=== PATIENT | female | born 1970 | race Caucasian/White ===

== ENCOUNTER 2016-05-10 16:30 | Emergency (ER) | payer BC ==
[~2016-05-10] VITALS: Ht 154.9 cm; Wt 55.0 kg
[2016-05-10 16:32] VITALS: TEMP 37.2; Ht 154.9 cm; Wt 55.0 kg
[2016-05-10] MEDS ORDERED: ACETAMINOPHEN 500 MG TAB PO STA (17:00)
--- NOTE | 2016-05-10 17:56 | DIAGNOSTIC IMAGING REPORT ---
CT SCAN OF THE BRAIN WITHOUT IV CONTRAST CLINICAL HISTORY: Fall with head injury. COMPARISON STUDY: No priors. TECHNIQUE: Unenhanced axial CT scan of the brain is performed from the vertex to the skull base. Automated dose control exposure was utilized. CT DOSE: 1160.96 mGy.cm FINDINGS: Brain parenchyma: There are numerous foci of hypodensity seen throughout the subcortical and periventricular white matter. There is no hemorrhage, mass effect, or evidence of acute territorial ischemia by CT criteria. Valentino-white matter is preserved. No extra-axial fluid collection is seen. Ventricles, sulci, cisterns: Normal in configuration. Intracranial vasculature: The visualized intracranial vasculature at the skull base is normal in appearance. Calvarium: There is no depressed calvarial fracture. Sinuses and mastoids: There is opacification of a right posterior ethmoid sinus. The remaining visualized paranasal sinuses are clear. The mastoid air cells are well pneumatized. Orbits: The bony orbits are grossly intact. IMPRESSION: 1. There is no hemorrhage, mass effect, or evidence of acute territorial ischemia by CT criteria. 2. There are numerous foci of diminished attenuation throughout the subcortical and periventricular white matter. This is of indeterminant significance, and could represent age advanced microangiopathic change or possibly plaques with a demyelinating process such as multiple sclerosis. Correlation with clinical findings and the patient's medical history will be required. If there is no known neurological history consider follow-up neurological consultation and nonemergent MRI of the brain for further assessment. Electronically signed by: Ludin Jimenez M.D. 05/10/2016 5:54 PM
[2016-05-10] MEDS ORDERED: DIPHTHERIA/TETANUS/PERTUSSIS 0.5 ML SYR/VIAL IM. ONE (18:15)
[2016-05-10] MEDS ORDERED: XYLOCAINE 1%/SOD BICARB 20 ML VIAL INFIL STA (18:20)
--- NOTE | 2016-05-10 18:25 | EMERGENCY ROOM VISIT NOTE ---
History First contact with patient: 16:43 Chief Complaint: FALL Stated Complaint: FALL, HIT HEAD History of Present Illness The patient is a 46 year old female who presents to the Emergency Room via private vehicle accompanied by with complaints of "fall, hit head". The patient states that while in a local park today she was attempting to get into a hammock when she fell onto the cement striking her head and right shoulder. This occurred around 4 PM today. When she began to fall she fell approximately 4 feet. She states that she heard a very loud noise, and then realized she had struck her head off the ground. She states she had to have a moment of closing her eyes and laying there on the ground. She didn't realize that she was bleeding from the right occipital/temporal region. She states that she laid on the ground for a very long time. She notes that initially she felt okay but then did not feel well. Her head, right ear and right shoulder are painful. She points to the region of the scalp just above the right ear as a location of the pain that she rates as a 7/10. The right external ear also hurts rated as a 4/10. The right shoulder over the deltoid is painful rated at an 8/10. She notes she does wear hearing aids but the right ear feels weird. There is associated nausea, and headache that occurred earlier. She was and what sort. And her neck is sore. She denies any anticoagulant use, aspirin use , vision changes, abdominal or back pain, loss of consciousness, vision changes , vomiting, dizziness, chest pain, shortness of breath. Patient's tetanus is believed to not be up-to-date Review of Systems A complete 10-point Review of Systems was discussed with the patient, with pertinent positives and negatives listed in the History of Present Illness. All remaining Review of Systems questions can be considered negative unless otherwise specified. Past Medical/Surgical History section Social History Smoking Status: Never Smoker Marital Status: Occupation Status: employed Social History: Patient was at home with and 2 kids Current/Historical Medications No Active Prescriptions or Reported Meds Allergies Coded Allergies: No Known Allergies (Verified , 05/10/16) Physical Exam Vital Signs Date Time Temp Pulse Resp B/P Pulse Ox O2 Delivery O2 Flow Rate FiO2 05/10/16 19:53 88 16 127/82 99 05/10/16 16:32 37.2 90 16 123/71 100 Room Air Physical Exam VITAL SIGNS - Vital signs and nursing notes were reviewed. The patient is afebrile, not hypertensive, not tachycardic, and oxygenating well at 100% on room air GENERAL -46-year-old female appearing her stated age. Communicates well with provider and answers questions appropriately. SKIN - There is a 1.5 cm "t" shaped laceration noted just above the right ear in the temporal scalp region. The edges gape apart with traction. There is no active bleeding appreciated. No deep structures including vessels, musculature, or bony structures are appreciated. HEAD - Normocephalic. No Landin's Sign or Raccoon's Eyes. No depressed skull fractures palpable. EYES - PERRL with EOMI bilaterally. Without subconjunctival hemorrhage. Palpebral conjunctiva pink and moist with no injection. EARS - No deformities of external structures noted on gross examination bilaterally. No hemotympanum present. No tympanic perforation noted. NOSE - Midline and without cyanosis. No epistaxis or clear watery discharge noted. Septum midline without deviation. No septal hematoma noted. No overlying ecchymosis noted. MOUTH/OROPHARYNX - Without perioral cyanosis. Tongue midline with equal elevation of palate bilaterally. No blood noted in the oropharynx. No tonsillar hypertrophy, erythema, or exudates noted. No dental fractures noted. NECK - FROM assessed. No tenderness to palpation over the cervical spinous processes. No cervical paraspinal muscle tenderness noted. LUNGS - Chest wall symmetric without accessory muscle use, intercostals retractions, or central cyanosis. Normal vesicular breath sounds CTA B/L. No wheezes, rales, or rhonchi appreciated. CARDIAC - RRR with S1/S2. No murmur, rubs, or gallops appreciated. EXTREMITIES - No gross deformities noted of the extremities. +3/5 radial pulses palpated throughout. +5/5 strength noted in UE/LE bilaterally. There is minimal tenderness to palpation of the shoulder. Active range of motion of the shoulder elicits extreme tenderness over the deltoid. NEUROLOGIC - Cranial nerves II through XII grossly intact. Sensory intact to light touch throughout. Patellar reflexes +2/4. PSYCH - A&Ox3 and cooperates fully with examiner. Pt is very pleasant and interacts well with examiner. Medical Decision & Procedures ER Provider Diagnostic Interpretation: CT SCAN OF THE BRAIN WITHOUT IV CONTRAST CLINICAL HISTORY: Fall with head injury. COMPARISON STUDY: No priors. TECHNIQUE: Unenhanced axial CT scan of the brain is performed from the vertex to the skull base. Automated dose control exposure was utilized. CT DOSE: 1160.96 mGy.cm FINDINGS: Brain parenchyma: There are numerous foci of hypodensity seen throughout the subcortical and periventricular white matter. There is no hemorrhage, mass effect, or evidence of acute territorial ischemia by CT criteria. Valentino-white matter is preserved. No extra-axial fluid collection is seen. Ventricles, sulci, cisterns: Normal in configuration. Intracranial vasculature: The visualized intracranial vasculature at the skull base is normal in appearance. Calvarium: There is no depressed calvarial fracture. Sinuses and mastoids: There is opacification of a right posterior ethmoid sinus. The remaining visualized paranasal sinuses are clear. The mastoid air cells are well pneumatized. Orbits: The bony orbits are grossly intact. IMPRESSION: 1. There is no hemorrhage, mass effect, or evidence of acute territorial ischemia by CT criteria. 2. There are numerous foci of diminished attenuation throughout the subcortical and periventricular white matter. This is of indeterminant significance, and could represent age advanced microangiopathic change or possibly plaques with a demyelinating process such as multiple sclerosis. Correlation with clinical findings and the patient's medical history will be required. If there is no known neurological history consider follow-up neurological consultation and nonemergent MRI of the brain for further assessment. Electronically signed by: Ludin Jimenez M.D. 05/10/2016 5:54 PM RIGHT SHOULDER 3 VIEWS CLINICAL HISTORY: Fall with right shoulder injury. FINDINGS: 3 views of the right shoulder are obtained. No prior studies are available for comparison at the time of dictation. The skeletal structures are well mineralized. No fracture or dislocation is seen. The glenohumeral and acromioclavicular joints appear maintained. The overlying soft tissues are within normal limits. The visualized right lung parenchyma appears clear. IMPRESSION: No acute bony abnormality is seen in the right shoulder. Electronically signed by: Ludin Jimenez M.D. 05/10/2016 7:18 PM Medications Administered Medications (Trade) Dose Ordered Sig/Maia Route Start Time Stop Time Status Last Admin Dose Admin Acetaminophen (Tylenol Tab) 500 mg NOW STAT PO 05/10/16 17:00 1/1/17 17:03 DC 05/10/16 17:10 500 MG Diphtheria/ Pertussis/Tetanus Vacc (Adacel Inj) 0.5 ml ONCE ONCE IM. 05/10/16 18:15 05/10/16 18:16 DC 05/10/16 18:25 0.5 ML Oxycodone HCl (Roxicodone Immediate Rel 5MG Home Pack) 1 homepack UD ONCE PO 05/10/16 19:30 05/10/16 19:31 DC 05/10/16 19:44 1 HOMEPACK Medical Decision Patient was seen and evaluated as above. After obtaining a thorough history and physical examination I elected to order a CT scan of the patient's head as well as a radiograph of the right shoulder secondary to mechanism of injury. I was concerned due to the patient noting that she had a period of haziness after falling as well as the shoulder pain. Results of the CT as above. Patient was given 500 mg of Tylenol for her pain per her request. No acute findings, however there was a potential demyelinating process and this was discussed with the patient and she noted that she did not have a history of MS or other ailments that she was aware of. She was instructed to follow-up with her family doctor regarding this for potential MRI. The radial graph the shoulder did not reveal any fracture. She likely has a rotator cuff injury. She was placed in a sling for this. In regard to the scalp laceration, benefits versus risks were discussed with the patient regarding primary wound closure. This region was anesthetized with 2 mL of 1% buffered lidocaine. The region was thoroughly irrigated and cleansed. 2 heather were then applied. The patient was instructed upon management. Patient was instructed to follow-up with a neuro specialist in the region and was provided the phone number and instructed to call as soon as possible. She was also provided the number for orthopedic surgeon, and instructed to follow-up with them as soon as possible for her shoulder. She is to wear the sling as able move her arm for exercise to eliminate risk of adhesive capsulitis. She is to return with any worsening of her symptoms or any concerns. She was educated up on worrisome symptoms in which to return. She had questions answered prior to discharge and was discharged home in good condition. Patient was stable time of discharge. For her pain she was given an OxyIR home pack. She was also updated on her tetanus. In the evaluation and treatment of this patient, the following differential diagnoses were considered: Concussion, Contrecoup Injury, Brain Tumor, Depression, Encephalitis, Hypothyroidism, Meningitis, CVA, TIA, Migraine, Cluster Headache, Intracranial Abnormality, Intracranial Hemorrhage, Subdural Hematoma, Subarachnoid Hemorrhage, Hydrocephalus, right shoulder fracture, rotator cuff injury, right shoulder dislocation, among others. [place] Drug Monitoring Program Search Results: patient reviewed within database, no issues identified Impression Primary Impression: Fall Additional Impressions: Laceration of head, Shoulder pain, right, Concussion Departure Information Dispostion Home / Self-Care Condition GOOD Prescriptions No Active Prescriptions or Reported Meds Referrals No Doctor, Assigned (PCP) Dee Ramos M.D. Sherbondy, Paul S., M.D. Patient Instructions A Signature Page, [facility] [employer] Additional Instructions Discharge Instructions: You have received 2 heather on your scalp. These heather are NOT dissolvable and WILL need to be removed by a health care provider in 7-10 days. You can return to the Emergency Department or contact your Primary Care Provider to have these heather removed. CT demonstrated no new injuries to the brain however the did comment on: "There are numerous foci of diminished attenuation throughout the subcortical and periventricular white matter. This is of indeterminant significance, and could represent age advanced microangiopathic change or possibly plaques with a demyelinating process such as multiple sclerosis. Correlation with clinical findings and the patient's medical history will be required. If there is no known neurological history consider follow-up neurological consultation and nonemergent MRI of the brain for further assessment." It is recommended that you follow-up with a neurologist, the number has been listed above. Please call this number as soon as possible to schedule follow- up. You've been provided the number for orthopedic surgeon. Please call that number as soon as possible regarding your shoulder. You have been given Oxy IR (24 hour supply) to be used for pain control. This is a narcotic medication. You cannot drive or consume alcohol while on this medicine. This medicine should only be used for pain that cannot be controlled with [id number] pain medicines. Keep the shoulder brace/sling in place until evaluated by Orthopedics. Continue to perform range of motion exercises several times per day to help prevent the development of a "frozen shoulder". Return to the Emergency Department if your current symptoms worsen despite treatment course outlined above, or if you develop any of the following symptoms : intractable pain despite aforementioned treatment course or new onset of numbness or tingling of the arm. Proper wound care is essential for adequate wound healing and infection prevention. You can shower and clean the wound with soap and water. Do scour over the wound, pat dry with a towel. Do not submerse the wound until the heather have been removed. You can use an antibiotic ointment with a dressing over the wound for the next 3-4 days. After this time you may leave the wound dry and open to the air. If crust develops over the wound you can use a Q-tip to apply a 1:1 peroxide:water solution to clean the wound. Look for signs of infection of the wound including: increased pain, swelling, foul discharge, streaking, or increased temperature. If any of these are noticed you should return to the Emergency Department for further assessment and treatment. As with any laceration you may have received nerve damage to the surrounding tissues. This damage may or may not be permanent. For pain control, you can use the following etkn-[id number] medicines (if >12 yo): - Regular strength (325mg/tab) Tylenol (acetaminophen) 2 tabs every 4-6 hours as needed. Do not exceed 12 tablets in a 24 hour period. Avoid taking more than 4 grams (4000 mg) of Tylenol per day. This includes any other sources of acetaminophen you may take on a regular basis. - Regular strength (200 mg/tab) Advil (ibuprofen) 1-2 tabs every 4-6 hours as needed. Do not exceed a dose of 3200 mg per day. Return to the emergency department if your symptoms worsen despite treatment course outlined above. Please return to the emergency department with any new/concerning symptoms.
--- NOTE | 2016-05-10 19:20 | DIAGNOSTIC IMAGING REPORT ---
RIGHT SHOULDER 3 VIEWS CLINICAL HISTORY: Fall with right shoulder injury. FINDINGS: 3 views of the right shoulder are obtained. No prior studies are available for comparison at the time of dictation. The skeletal structures are well mineralized. No fracture or dislocation is seen. The glenohumeral and acromioclavicular joints appear maintained. The overlying soft tissues are within normal limits. The visualized right lung parenchyma appears clear. IMPRESSION: No acute bony abnormality is seen in the right shoulder. Electronically signed by: Ludin Jimenez M.D. 05/10/2016 7:18 PM
[2016-05-10] MEDS ORDERED: OXYCODONE IR HOME PACK PO ONE (19:30)
[2016-05-10 19:53] VITALS: BP 127/82; PULSE 88; O2SAT 99
== END 2016-05-10 19:54 | disposition home or self-care (01) ==
LOC: C.EDB 16:31 → C.EDD 19:54
DX: S06.0X0A Concussion without loss of consciousness, initial encounter (principal); M25.511 Pain in right shoulder; W17.89XA Other fall from one level to another, initial encounter; Y92.830 Public park as the place of occurrence of the external cause; Z23 Encounter for immunization

== ENCOUNTER → 2016-06-09 | Outpatient (CLI) | payer BC ==
[~2016-06-09] MED LIST: GADAVIST IV PRN
--- NOTE | 2016-06-09 08:03 | DIAGNOSTIC IMAGING REPORT ---
MRI OF THE BRAIN WITHOUT AND WITH IV CONTRAST CLINICAL HISTORY: Head trauma. Abnormal CT scan. COMPARISON STUDY: CT scan dated 05/10/2016 TECHNIQUE: MRI of the brain was performed from the vertex to the skull base utilizing various T1 and T2 weighted sequences. Following the IV administration of 5.5 mL of Gadavist contrast, additional enhanced images were obtained. FINDINGS: Sagittal T1, axial diffusion, proton density and T2 weighted axial, coronal FLAIR, and pre and post axial T1-weighted images were acquired. These were supplemented with post gadolinium coronal T1 weighted images. No intra or extra-axial mass lesions are visualized. Axial diffusion-weighted images reveal no evidence of acute or subacute infarction. There is no evidence of ventricular dilatation. Proton density T2-weighted and FLAIR images reveal there are multiple foci of abnormal increased T2 signal within the white matter. These are greater than expected for age. There is no pathologic enhancement. The findings could be secondary to small vessel disease, or a demyelinating process. There are no abnormal flow voids. There is no evidence of pathologic enhancement. IMPRESSION: 1. No evidence of acute or subacute infarction 2. No evidence of intracranial mass 3. Moderately extensive foci of abnormal increased T2 signal within the white matter. These are greater than expected for age. Diagnostic considerations include small vessel disease, or a demyelinating process. Electronically signed by: Billy Pickett M.D. 06/09/2016 8:02 AM Dictated Date/Time: 06/09/2016 7:58 AM
== END ==
LOC: C.MRIBC 06:43
PROVIDERS: ATTEND Psychiatry & Neurology Neurology
DX: R90.89 Other abnormal findings on diagnostic imaging of central nervous system (principal)

== ENCOUNTER → 2016-07-13 | Outpatient (CLI) | payer BC ==
[~2016-07-13] MED LIST changes: -GADAVIST IV PRN; +OPTIRAY 320 IV PRN
--- NOTE | 2016-07-13 12:25 | DIAGNOSTIC IMAGING REPORT ---
HEAD CTA HISTORY: Mental status change. Abnormal MRI. TECHNIQUE: Multiaxial CT images of the head were performed both before and after the intravenous administration of contrast to evaluate the major cerebral vessels. Maximum intensity projection images were also obtained. COMPARISON: MRI dated 06/09/2016 FINDINGS: There is no mass, hematoma, midline shift, or acute infarct. Visualized intracranial internal carotid arteries, distal vertebral arteries, and basilar artery are widely patent. There is no significant stenosis, occlusion, or aneurysm seen within the bilateral ACAs, MCAs, or bench repair technician. Both anterior cerebrals are present via the right cerebral circulation. This is an anatomic variation. IMPRESSION: Normal study Electronically signed by: Eamon Abdullahi M.D. 07/13/2016 12:24 PM Dictated Date/Time: 07/13/2016 12:20 PM
--- NOTE | 2016-07-13 12:47 | DIAGNOSTIC IMAGING REPORT ---
ULTRASOUND OF THE CAROTID ARTERIES CLINICAL HISTORY: I67.82 Chronic cerebral [id number] COMPARISON STUDY: None. TECHNIQUE: Real-time, grayscale, and color Doppler sonography of the carotid arteries was performed. Imaging reviewed in the transverse and longitudinal planes. NASCET criteria was utilized for stenosis calcification. FINDINGS: There is minimal atherosclerotic plaque present . The peak systolic velocity within the right internal carotid artery is 117 cm/sec. The systolic velocity ratio of right internal to common carotid artery is 1.6. The peak systolic velocity within the left internal carotid artery is 106 cm/sec. The systolic velocity ratio left internal to common carotid artery is 1.2. Antegrade flow is seen in the vertebral arteries. The external carotid arteries are patent. Blood pressure in the right arm measured 106 mm/Hg. Blood pressure in the left arm measured 103 mm/Hg. IMPRESSION: No evidence of hemodynamically significant carotid stenosis. Electronically signed by: Billy Pickett M.D. 07/13/2016 12:46 PM Dictated Date/Time: 07/13/2016 12:45 PM
--- NOTE | 2016-07-13 14:40 | ECHOCARDIOGRAM REPORT ---
*NOTICE TO RECEIVING [employer] This information is strictly Confidential and protected under [place] law. [place] law prohibits you from making any further disclosure of this information unless further disclosure is expressly permitted by the written consent of the person to whom it pertains or is authorized by law. A general authorization for the release of medical or other information is not sufficient for this purpose. Hospital accepts no responsibility if the information is made available to any other person, INCLUDING THE PATIENT. Interpretation Summary * Name: MARYA ALBRIGHT Study Date: 07/13/2016 12:45 PM BP: 105/58 mmHg * Patient Location: [facility] HR: 60 * : 1970 (M/d/yyyy) Gender: Female Height: 61 in * Age: 46 yrs Ethnicity: CA Weight: 124 lb * Ordering Physician: Jen Bueno PA * Performed By: Toma Mi RDCS * * Reason For Study: Chronic cerebral ischemia * BSA: 1.5 m2 * -- Conclusions -- * Left ventricular systolic function is normal. * No regional wall motion abnormalities noted. * Ejection Fraction = 65-70%. * Injection of contrast documented no interatrial shunt. * There is mild tricuspid regurgitation. Procedure Details * A complete two-dimensional transthoracic echocardiogram was performed (2D, M-mode, Doppler and color flow Doppler). * A saline contrast injection was performed to assess for cardiac shunting. * The injection was performed through an intravenous line in the right arm. * The attending nurse who injected the saline contrast was Rizwan Ramirez RN. * A total of 20 cc of agitated saline was given. Left Ventricle * The left ventricle is normal in size. * There is normal left ventricular wall thickness. * Ejection Fraction = 65-70%. * Left ventricular systolic function is normal. * No regional wall motion abnormalities noted. Right Ventricle * The right ventricle is normal size. * The right ventricular systolic function is normal as assessed by tricuspid annular plane systolic excursion (TAPSE) (normal >1.5 cm). Atria * The left atrial size is normal. * Right atrial size is normal. * Injection of contrast documented no interatrial shunt. Mitral Valve * The mitral valve is normal in structure and function. * There is no mitral valve stenosis. * Significant mitral regurgitation is absent. Tricuspid Valve * The tricuspid valve is normal in structure and function. * There is mild tricuspid regurgitation. Aortic Valve * The aortic valve is normal in structure and function. * No hemodynamically significant valvular aortic stenosis. * There is no significant aortic regurgitation. Pulmonic Valve * The pulmonary valve is not well seen, but the Doppler examination is normal without significant regurgitation or stenosis. Great Vessels * The aortic root is normal size. * The pulmonary artery is not well visualized, but is probably normal size. Pericardium/Pleural * There is no pericardial effusion. Great Vessels * The inferior vena cava is mildly dilated. MMode 2D Measurements and Calculations IVSd 0.58 cm LVIDd 4.1 cm LVIDs 2.5 cm LVPWd 0.71 cm IVS/LVPW 0.83 FS 39.6 % EDV(Teich) 73.4 ml ESV(Teich) 21.5 ml EF(Teich) 70.7 % EDV(cubed) 67.9 ml ESV(cubed) 14.9 ml EF(cubed) 78.0 % LV mass(C)d 72.8 grams LV mass(C)dI 47.2 grams/m\S\2 CO(Teich) 3.1 l/min CI(Teich) 2.0 l/min/m\S\2 SV(Teich) 51.9 ml SI(Teich) 33.7 ml/m\S\2 CO(cubed) 3.2 l/min CI(cubed) 2.1 l/min/m\S\2 SV(cubed) 53.0 ml SI(cubed) 34.4 ml/m\S\2 Ao root diam 2.8 cm Ao root area 6.1 cm\S\2 ACS 1.7 cm LA dimension 2.4 cm asc Aorta Diam 2.3 cm LA/Ao 0.88 LVOT diam 2.0 cm LVOT area 3.0 cm\S\2 LVAd ap4 24.3 cm\S\2 LVLd ap4 7.0 cm EDV(MOD-sp4) 70.2 ml LVAs ap4 11.0 cm\S\2 LVLs ap4 5.3 cm ESV(MOD-sp4) 19.4 ml EF(MOD-sp4) 72.4 % LVAd ap2 22.2 cm\S\2 LVLd ap2 7.2 cm EDV(MOD-sp2) 58.2 ml LVAs ap2 8.9 cm\S\2 LVLs ap2 4.8 cm ESV(MOD-sp2) 13.9 ml EF(MOD-sp2) 76.1 % CO(MOD-sp4) 3.0 l/min CI(MOD-sp4) 2.0 l/min/m\S\2 SV(MOD-sp4) 50.8 ml SI(MOD-sp4) 32.9 ml/m\S\2 CO(MOD-sp2) 2.7 l/min CI(MOD-sp2) 1.7 l/min/m\S\2 SV(MOD-sp2) 44.3 ml SI(MOD-sp2) 28.7 ml/m\S\2 Doppler Measurements and Calculations MV E max enedina 114.5 cm/sec MV A max enedina 87.8 cm/sec MV E/A 1.3 MV dec time 0.18 sec Ao V2 max 162.9 cm/sec Ao max PG 10.6 mmHg Ao max PG (full) 0.64 mmHg SIERRA(V,A) 2.9 cm\S\2 SIERRA(V,D) 2.9 cm\S\2 LV V1 max PG 10.0 mmHg LV V1 max 157.9 cm/sec PA V2 max 120.8 cm/sec PA max PG 5.8 mmHg PA acc slope 462.1 cm/sec\S\2 PA acc time 0.17 sec TR max enedina 236.2 cm/sec PA pr(Accel) 2.9 mmHg
== END | disposition home or self-care (01) ==
LOC: C.CTS 11:46
PROVIDERS: ATTEND Psychiatry & Neurology Neurology
DX: I67.82 Cerebral ischemia (principal)

== ENCOUNTER → 2017-01-19 | Outpatient (CLI) | payer BC ==
[~2017-01-19] MED LIST changes: +GADAVIST IV PRN; -OPTIRAY 320 IV PRN
--- NOTE | 2017-01-19 08:09 | DIAGNOSTIC IMAGING REPORT ---
BRAIN COMBO FOR MS HISTORY: Demyelinating disorder F/U TO ABN MRI TECHNIQUE: Multiplanar multisequence MRI of the brain was performed both before and after the intravenous administration of contrast. COMPARISON STUDY: 06/09/2016 FINDINGS: Multiple foci of increased signal within the periventricular deep white matter regions. This includes the optic radiations bilaterally. Distribution as well as number and size of foci are unchanged. No new foci. There is no abnormal postcontrast enhancement. IMPRESSION: 1. Multiple foci of increased signal throughout both cerebral hemispheres. 2. No evidence for abnormal postcontrast enhancement. 3. No change from the prior exam. No new or interval findings. 4. A demyelinating disorder is the diagnosis of exclusion The above report was generated using voice recognition software. It may contain grammatical, syntax or spelling errors. Electronically signed by: Eamon Abdullahi M.D. 01/19/2017 8:08 AM Dictated Date/Time: 01/19/2017 7:50 AM
== END | disposition home or self-care (01) ==
LOC: C.MRIBC 06:49
PROVIDERS: ATTEND Psychiatry & Neurology Neurology
DX: R90.89 Other abnormal findings on diagnostic imaging of central nervous system (principal)

== ENCOUNTER → 2017-02-26 | Outpatient (CLI) | payer BC ==
--- NOTE | 2017-02-26 13:43 | MAMMOGRAPHY REPORT ---
BILATERAL DIGITAL DIAGNOSTIC MAMMOGRAM TOMOSYNTHESIS WITH CAD: 02/26/2017 CLINICAL HISTORY: 12 month follow-up of right breast calcifications. Due for routine annual mammogra phy. The patient reports no current complaints. TECHNIQUE: Breast tomosynthesis in addition to standard 2D mammography was performed. Current study was also evaluated with a Computer Aided Detection (CAD) system. Bilateral CC and MLO 2-D and tomosy nthesis images and spot magnification right cc and ML views were obtained. COMPARISON: Comparison is made to exams dated: 02/26/2016 mammogram, 08/22/2015 mammogram, 02/15/2015 mammogram, 02/07/2015 mammogram, 02/05/2014 mammogram, and 02/03/2013 mammogram - [facility]. BREAST COMPOSITION: The tissue of both breasts is extremely dense, which lowers the sensitivity of m ammography. FINDINGS: The previously described loosely grouped punctate calcifications in the right lateral poste rior breast are less prominent compared to prior spot magnification views dating back to February 2015 , and are therefore considered benign. There are no suspicious masses, calcifications, or areas of a rchitectural distortion noted within either breast. There has been no significant interval change co mpared to prior exams. IMPRESSION: ACR BI-RADS CATEGORY 2: BENIGN The previously described right breast calcifications are less prominent compared to prior exams, and are considered benign. There is no mammographic evidence of malignancy in either breast. A 1 year sc reening mammogram is recommended. The patient has been verbally notified of the results. Approximately 10% of breast cancers are not detected with mammography. A negative mammographic report should not delay biopsy if a clinically suggestive mass is present. Hui Gonzales M.D. ah/:02/26/2017 11:51:15 Business Executive: Dannielle LOTT(Sierra)(M), [facility] letter sent: Normal 1/2 BI-RADS Code: ACR BI-RADS Category 2: Benign
== END | disposition home or self-care (01) ==
LOC: C.MAMM 11:22
PROVIDERS: ATTEND Obstetrics & Gynecology
DX: R92.1 Mammographic calcification found on diagnostic imaging of breast (principal)

== ENCOUNTER 2018-01-04 10:56 | Emergency (ER) | payer OTHER ==
[~2018-01-04] VITALS: Ht 157.5 cm; Wt 58.2 kg
[2018-01-04] MEDS ORDERED: MoRPHine SULFATE 4 MG/ML 1 ML CARP\\VIAL ONE (11:11)
[2018-01-04 11:28] VITALS: TEMP 37.4; Ht 157.5 cm; Wt 58.2 kg
--- NOTE | 2018-01-04 11:29 | EMERGENCY ROOM VISIT NOTE ---
History First contact with patient: 11:04 Chief Complaint: ABDOMINAL PAIN Stated Complaint: AB PAIN, History of Present Illness The patient is a 47 year old female who presents to the Emergency Room with complaints of diffuse abdominal pain that she describes as the worst pain that she has experienced. The pain has been getting progressively worse over the last 2 days. The pain is constant and worse with movement. She has not tried anything [id number] for symptoms. Her bowel movements have been fairly regular. She has had mild nausea without vomiting. She took her temperature last night. She had a fever of 100F. The patient saw her primary care physician, and was sent here for further evaluation. She denies any urinary symptoms. Review of Systems 10 system review performed and negative unless noted in HPI or below Past Medical/Surgical History Status post 2 Social History Smoking Status: Never Smoker Marital Status: Occupation Status: employed Current/Historical Medications Scheduled Aspirin (Aspirin Ec), 81 MG PO DAILY Scheduled PRN Oxycodone/Acetaminophen 5MG/325MG (Percocet 5MG/325MG), 1 TAB PO Q4H PRN for Pain Physical Exam Vital Signs Date Time Temp Pulse Resp B/P (MAP) Pulse Ox O2 Delivery O2 Flow Rate FiO2 01/04/18 17:15 59 16 99/58 98 Room Air 01/04/18 15:43 66 01/04/18 15:19 63 14 95/57 97 Room Air 01/04/18 13:22 67 17 91/65 99 01/04/18 12:35 66 14 94/68 99 Room Air 01/04/18 11:40 71 01/04/18 11:28 37.4 75 19 111/72 99 Room Air Physical Exam GENERAL: 47-year-old female, in moderate discomfort, in no acute distress, nondiaphoretic, well-developed well-nourished. SKIN: The skin was warm and slightly moist HEAD: Normocephalic atraumatic. EYES: Conjunctivae without injection, sclerae without icterus. Extraocular movements intact. MOUTH: Mucous membranes slightly dry NECK: Supple without nuchal rigidity. . No JVD. HEART: Regular rate and rhythm without murmurs gallops or rubs. LUNGS: Clear to auscultation bilaterally without wheezes, rales or rhonchi. No accessory muscle use. ABDOMEN: Positive bowel sounds x 4.Soft, tenderness to palpation in the right lower quadrant. Positive Rovsing sign and rebound tenderness.. MUSCULOSKELETAL: No muscle atrophy, erythema, or edema noted. Strength 5/5 throughout. NEURO: Patient was alert and oriented to person place and time. Normal sensation to touch. No focal neurological deficits. Medical Decision & Procedures ER Provider Diagnostic Interpretation: CT of the abdomen and pelvis with IV and oral contrast IMPRESSION: 1. Normal appendix. No bowel obstruction. 2. 2.3 cm left ovarian cyst with small amount of hemorrhage within the cul-de-sac and right paracolic gutter. Assuming a negative test, the findings suggest a ruptured hemorrhagic ovarian cyst. Electronically signed by: Tamir Self M.D. 01/04/2018 2:58 PM Dictated Date/Time: 01/04/2018 2:51 PM The status of this report is Signed. Draft = Not yet reviewed or approved by Radiologist. Signed = Reviewed and approved by Radiologist. <AttendingPhy></AttendingPhy> <FamilyPhy>Marty Laboy MD</FamilyPhy> < PrimaryPhy>Marty Laboy MD</PrimaryPhy> <UnitNumber>[id number]</ UnitNumber> <VisitNumber>[id number] Laboratory Results 01/04/18 11:06 Red Blood Count 3.82, Mean Corpuscular Volume 87.7, Mean Corpuscular Hemoglobin 28.8, Mean Corpuscular Hemoglobin Concent 32.8, Mean Platelet Volume 10.1, Neutrophils (%) (Auto) 75.9, Lymphocytes (%) (Auto) 14.8, Monocytes (%) (Auto) 8.8, Eosinophils (%) (Auto) 0.2, Basophils (%) (Auto) 0.1, Neutrophils # (Auto) 6.63, Lymphocytes # (Auto) 1.29, Monocytes # (Auto) 0.77, Eosinophils # (Auto) 0.02, Basophils # (Auto) 0.01 01/04/18 11:06 01/04/18 12:05 Test 01/04/18 11:06 01/04/18 11:45 01/04/18 12:05 White Blood Count 8.74 K/uL (4.8-10.8) Red Blood Count 3.82 M/uL (4.2-5.4) Hemoglobin 11.0 g/dL (12.0-16.0) Hematocrit 33.5 % (37-47) Mean Corpuscular Volume 87.7 fL (80-100) Mean Corpuscular Hemoglobin 28.8 pg (25-34) Mean Corpuscular Hemoglobin Concent 32.8 g/dl (32-36) Platelet Count 233 K/uL (130-400) Mean Platelet Volume 10.1 fL (7.4-10.4) Neutrophils (%) (Auto) 75.9 % Lymphocytes (%) (Auto) 14.8 % Monocytes (%) (Auto) 8.8 % Eosinophils (%) (Auto) 0.2 % Basophils (%) (Auto) 0.1 % Neutrophils # (Auto) 6.63 K/uL (1.4-6.5) Lymphocytes # (Auto) 1.29 K/uL (1.2-3.4) Monocytes # (Auto) 0.77 K/uL (0.11-0.59) Eosinophils # (Auto) 0.02 K/uL (0-0.5) Basophils # (Auto) 0.01 K/uL (0-0.2) RDW Standard Deviation 41.8 fL (36.4-46.3) RDW Coefficient of Variation 13.0 % (11.5-14.5) Immature Granulocyte % (Auto) 0.2 % Immature Granulocyte # (Auto) 0.02 K/uL (0.00-0.02) Anion Gap 9.0 mmol/L (3-11) Est Creatinine Clear Calc Drug Dose 77.2 ml/min Estimated GFR () 116.4 Estimated GFR (Non- 100.4 BUN/Creatinine Ratio 20.0 (10-20) Calcium Level 8.4 mg/dl (8.5-10.1) Total Bilirubin 0.7 mg/dl (0.2-1) Alanine Aminotransferase (ALT/SGPT) 19 U/L (12-78) Alkaline Phosphatase 45 U/L (45-117) Total Protein 7.3 gm/dl (6.4-8.2) Albumin 3.8 gm/dl (3.4-5.0) Globulin 3.5 gm/dl (2.5-4.0) Albumin/Globulin Ratio 1.1 (0.9-2) Lipase 122 U/L (73-393) Human Chorionic Gonadotropin, Qual NEG (NEG) Lactic Acid Level 0.5 mmol/L (0.4-2.0) Aspartate Amino Transf (AST/SGOT) 12 U/L (15-37) Medications Administered Medications (Trade) Dose Ordered Sig/Maia Route Start Time Stop Time Status Last Admin Dose Admin Morphine Sulfate (MoRPHine SULFATE INJ) 4 mg STK-MED ONCE .ROUTE 01/04/18 11:11 01/04/18 11:12 DC 01/04/18 11:14 4 MG Morphine Sulfate (MoRPHine SULFATE INJ) 4 mg Q1H PRN IV 01/04/18 11:30 01/18/18 11:29 01/04/18 12:34 4 MG Sodium Chloride 1,000 ml @ 999 mls/hr Q1H1M ONCE IV 01/04/18 11:30 01/04/18 12:30 DC 01/04/18 11:30 999 MLS/HR Ondansetron HCl (Zofran Inj) 4 mg Q2H PRN IV 01/04/18 11:30 02/03/18 11:29 01/04/18 11:39 4 MG Sodium Chloride 1,000 ml @ 999 mls/hr Q1H1M STAT IV 01/04/18 16:00 01/04/18 17:00 DC 01/04/18 16:00 999 MLS/HR ED Course Patient was seen and examined Vital signs including blood pressure were reviewed medications list was verified with patient Labs were obtained, and a saline lock was established The patient was medicated with morphine and Zofran. She was hydrated with 1 L of normal saline. Imaging was performed and reviewed Upon reevaluation, the patient was much more comfortable. We discussed the results of her workup. She voiced understanding. She was comfortable being discharged home. The patient was given 1 additional liter of fluid The case was discussed with my supervising physician who is in agreement with my plan. Was also discussed with her primary care physician. Case management gave the patient a follow-up with [facility]. I reviewed discharge instructions the patient. They voiced understanding and had no further questions. Medical Decision Differential diagnosis: Appendicitis, diverticulitis, ureteral stone, pyelonephritis, UTI, cholecystitis, pancreatitis, viral versus bacterial GI illness, among others were entertained This patient is a 47-year-old female that presents to the emergency department complaining of 2 days of abdominal pain. She said that she developed a fever last night. On exam, she has significant right lower quadrant tenderness and rebound. She was afebrile here. I was concerned this could be a developing appendicitis. Her workup reveals no leukocytosis. She was slightly anemic. Her imaging is consistent with a right-sided 2 cm hemorrhagic ovarian cyst. Although she is slightly anemic, her blood counts are stable. She was slightly hypotensive. This was discussed with her primary care physician. The patient typically runs low. The patient was given a follow-up appointment with [facility]. She was comfortable being discharged home. She will be given a course of narcotics for pain control. She was cautioned on signs for which to return to the ED. This chart was completed in part utilizing [employer] Voice Recognition software. Attempts were made to minimize the grammatical errors, random word insertions, pronoun errors and incomplete sentences. Any formal questions or concerns about the content, text or information contained within the body of this dictation should be directly addressed to the provider for clarification. Medication Reconcilliation Current Medication List: was personally reviewed by me Impression Primary Impression: Hemorrhagic cyst of right ovary Departure Information Dispostion Home / Self-Care Condition GOOD Prescriptions Oxycodone/Acetaminophen 5MG/325MG (PERCOCET 5MG/325MG) Tab 1 TAB PO Q4H Y for Pain, #15 TAB For Initial Treatment Prov: Nina Marcos PA-C 01/04/18 Referrals Marty Laboy MD (PCP) Zaid Douglass M.D. Patient Instructions My [facility] Additional Instructions You have been evaluated in the emergency department for abdominal pain. This is due to a 2 cm ovarian cyst. Ibuprofen 600 mg every 6 hours as needed for pain Percocet 1-2 tabs every 4 hours for severe pain. Do not drink alcohol or drive while taking this medication. This may be taken with ibuprofen, but avoid Tylenol. Please be aware, this medication will likely cause constipation. Please take a stool softener while on it. Please follow-up with the [facility] doctor as scheduled Please also follow-up with your primary care physician. Call tomorrow morning for a follow-up appointment. Do not hesitate to return to the emergency department with any new, worsening or concerning symptoms; especially, worsening pain, fever of 102F or greater, lightheadedness, difficulty breathing or pain in your chest It was a pleasure participating in your care today
[2018-01-04] MEDS ORDERED: ONDANSETRON INJ 2 MG/ML 2 ML VIAL IV PRN (11:30)
[2018-01-04] MEDS ORDERED: OPTIRAY 320 IV PRN (11:30)
[2018-01-04] MEDS ORDERED: SODIUM CHLORIDE 0.9% 1000ML 1,000 ML IV ONE (11:30)
[2018-01-04] MEDS ORDERED: MoRPHine SULFATE 4 MG/ML 1 ML CARP\\VIAL IV PRN (11:30)
[2018-01-04 11:31] LABS: BASO % 0.1 %; BASO ABS # 0.01 K/uL (0-0.2); EOS % 0.2 %; EOS ABS # 0.02 K/uL (0-0.5); HEMATOCRIT 33.5 % (37-47); IG# 0.02 K/uL (0.00-0.02); LYMPH % 14.8 %; LYMPH ABS # 1.29 K/uL (1.2-3.4); MEAN CELL VOLUME 87.7 fL (80-100); MEAN CORPUSCULAR HEMOGLOBIN 28.8 pg (25-34); MEAN CORPUSCULAR HGB CONC 32.8 g/dl (32-36); MEAN PLATELET VOLUME 10.1 fL (7.4-10.4); MONO % 8.8 %; MONO ABS # 0.77 K/uL (0.11-0.59); NEUT % 75.9 %; NEUT ABS # 6.63 K/uL (1.4-6.5); PLATELET COUNT 233 K/uL (130-400); RED CELL DISTRIBUTION WIDTH SD 41.8 fL (36.4-46.3); WHITE BLOOD COUNT 8.74 K/uL (4.8-10.8)
[2018-01-04] MEDS ORDERED: ASPI81TA28 PO (11:35)
[2018-01-04 11:52] LABS: ALBUMIN 3.8 gm/dl (3.4-5.0); CALCIUM 8.4 mg/dl (8.5-10.1); CREATININE 0.72 mg/dl (0.60-1.20); TOTAL PROTEIN 7.3 gm/dl (6.4-8.2)
[2018-01-04 12:32] LABS: POTASSIUM 3.5 mmol/L (3.5-5.1)
--- NOTE | 2018-01-04 14:59 | DIAGNOSTIC IMAGING REPORT ---
CT OF THE ABDOMEN AND PELVIS WITH CONTRAST CLINICAL HISTORY: Right lower quadrant abdominal pain and fever. COMPARISON STUDY: CT of the abdomen and pelvis August 20, 2011 and right upper quadrant ultrasound November 30, 2011. TECHNIQUE: Following IV administration of 119 mL of Optiray-320, axial images of the abdomen and pelvis were obtained from the lung bases to the proximal femurs. Images were reviewed in the axial, sagittal, and coronal planes. IV contrast was administered without complication. A dose lowering technique was utilized adhering to the principles of ALARA. Oral contrast was administered. CT DOSE: 442.13 mGycm FINDINGS: Lung bases are clear. A right hepatic lobe hemangioma is unchanged. The spleen, adrenal glands, kidneys and pancreas are unremarkable. There is no biliary or pancreatic ductal dilatation dictation. There may be a pancreas divisum. There is no hydronephrosis. The caliber and wall thickness of small and large bowel are normal. The appendix is normal. A 2.3 cm rim-enhancing left adnexal lesion favors a corpus luteal cyst. A small amount of hyperdense fluid within the cul-de-sac and right paracolic gutter reflects hemorrhage. The right ovary is not enlarged. No pneumatosis, free air or portal venous gas is present. There are no suspicious osseous lesions. There is no evidence for a bowel obstruction. IMPRESSION: 1. Normal appendix. No bowel obstruction. 2. 2.3 cm left ovarian cyst with small amount of hemorrhage within the cul-de-sac and right paracolic gutter. Assuming a negative test, the findings suggest a ruptured hemorrhagic ovarian cyst. Electronically signed by: Tamir Self M.D. 01/04/2018 2:58 PM Dictated Date/Time: 01/04/2018 2:51 PM
[2018-01-04] MEDS ORDERED: SODIUM CHLORIDE 0.9% 1000ML 1,000 ML IV STA (16:00)
[2018-01-04 17:15] VITALS: BP 99/58; PULSE 59; O2SAT 98
[2018-01-04] MEDS ORDERED: OXYC-57 PO (17:16)
== END 2018-01-04 17:42 | disposition home or self-care (01) ==
LOC: EDBD 10:56 → C.EDC 10:57
DX: N83.201 Unspecified ovarian cyst, right side (principal); Z79.82 Long term (current) use of aspirin